=== PATIENT | male | born 1970 | race Caucasian/White ===

== ENCOUNTER → 2016-11-24 | Outpatient (REF) | payer OTHER ==
[2016-11-24 11:50] LABS: BASO % 0.5 % (0.0-1.0); LARGE UNSTAINED CELL # 0.1 K/mm3 (0.0-0.4); LARGE UNSTAINED CELL % 2.1 % (0.0-4.0); LYMPH # 2.3 K/mm3 (1.5-4.5); LYMPH % 46.4 % (24.0-44.0); MEAN CORPUSCULAR HEMOGLOBIN 32.2 pg (27.0-33.0); MEAN CORPUSCULAR HGB CONC 34.9 g/dl (32.0-36.5); MEAN CORPUSCULAR VOLUME 92.2 fl (80.0-96.0); MONO # 0.3 K/mm3 (0.0-0.8); MONO % 6.7 % (0.0-5.0); NEUTROPHILS # 2.2 K/mm3 (1.8-7.7); NEUTROPHILS % 43.3 % (36.0-66.0); PLATELET COUNT, AUTOMATED 187 k/mm3 (150-450); RED CELL DISTRIBUTION WIDTH 12.6 % (11.5-14.5)
[2016-11-24 12:08] LABS: FOLATE > 24.0 NG/ML; VITAMIN B12 LEVEL 489 PG/ML
[2016-11-24 12:15] LABS: ALBUMIN/GLOBULIN RATIO 1.18 (1.00-1.93); ALKALINE PHOSPHATASE 68 U/L (45-117); ALT/SGPT 60 U/L (12-78); ANION GAP 6 MEQ/L (8-16); AST/SGOT 25 U/L (15-37); BILIRUBIN,TOTAL 0.4 MG/DL (0.2-1.0); BLOOD UREA NITROGEN 17 MG/DL (7-18); CALCIUM LEVEL 8.7 MG/DL (8.5-10.1); CARBON DIOXIDE LEVEL 30 MEQ/L (21-32); CHLORIDE LEVEL 105 MEQ/L (98-107); CHOLESTEROL LEVEL 263 MG/DL (<200); CREATININE FOR GFR 1.08 MG/DL (0.70-1.30); GLOMERULAR FILTRATION RATE > 60.0 (>60); GLUCOSE, FASTING 109 MG/DL (70-105); POTASSIUM SERUM 4.5 MEQ/L (3.5-5.1); SODIUM LEVEL 141 MEQ/L (136-145); TOTAL PROTEIN 7.4 GM/DL (6.4-8.2); TRIGLYCERIDES LEVEL 505 MG/DL (<150)
== END ==
LOC: M SFHCLERA 09:15
PROVIDERS: ATTEND Family Medicine
DX: R53.83 Other fatigue (principal); Z13.220 Encounter for screening for lipoid disorders; R19.7 Diarrhea, unspecified

== ENCOUNTER → 2017-01-23 | Outpatient (CLI) | payer BC, OTHER ==
--- NOTE | 2017-01-27 08:33 | SLEEPCENT ---
DATE OF PROCEDURE: 01/23/2017 ORDERED BY: Kriss Fish INTERPRETATION: Nocturnal polysomnography was performed due to concern for the obstructive sleep apnea syndrome in this patient with a history of excessive somnolence, morning headaches and nonrestorative sleep. 7 hours and 20 minutes of data were reviewed. There were 295 minutes of sleep identified. Sleep latency was mildly prolonged at 33 minutes. REM latency likewise at 129 minutes. Sleep architecture was fair with two REM periods appreciated with a period of wake between 2:15 and 3 a.m. resulting in reduced sleep efficiency of 67%. REM time was fairly well preserved. The patient's EKG showed a sinus rhythm with an average heart rate of 60 beats per minute. EEG showed normal wave forms for awake and sleep. There were only 15 respiratory events identified of 10 seconds in duration or greater for an apnea-hypopnea index of 3.1. Significant snoring was appreciated and respiratory related arousals occurred 3.7 times per hour. There were a few limb movements. Limb movement arousal index was within normal range at 3.1. IMPRESSION: Normal nocturnal polysomnography with snoring.
== END ==
LOC: M SLEEP 20:00
PROVIDERS: ATTEND Nurse Practitioner Adult Health
DX: G47.30 Sleep apnea, unspecified (principal)

== ENCOUNTER → 2017-01-27 | Outpatient (CLI) | payer BC, OTHER ==
[2017-01-30 00:10] LABS: H PYLORI SERUM QUANT IgG ABY >8.0 U/mL (0.0-0.8)
== END ==
LOC: M SMT 11:37
PROVIDERS: ATTEND Allergy & Immunology Allergy
DX: K52.9 Noninfective gastroenteritis and colitis, unspecified (principal)

== ENCOUNTER → 2017-02-03 | Outpatient (REF) | payer OTHER, BC | LOC: M LAB REF 17:44 | PROVIDERS: ATTEND Allergy & Immunology Allergy | DX: B96.81 Helicobacter pylori [H. pylori] as the cause of diseases classified elsewhere (principal); L50.9 Urticaria, unspecified ==

== ENCOUNTER → 2017-03-29 | Outpatient (CLI) | payer BC, OTHER ==
--- NOTE | 2017-03-29 11:35 | REP ---
Clinical: Generalized abdominal pain. Technique: Supine views of the abdomen and pelvis. Findings: Supine views of the abdomen and pelvis demonstrate nonspecific bowel gas pattern without obstruction or perforation. No organomegaly. No abnormal calcifications. Skeletal structures normal for age. Impression: Nonspecific bowel gas pattern. Signed by Tod Chiang MD 03/29/2017 11:27 A
== END ==
LOC: M LRY 10:53
PROVIDERS: ATTEND Physician Assistant
DX: R10.84 Generalized abdominal pain (principal); K59.00 Constipation, unspecified

== ENCOUNTER → 2017-08-23 | Outpatient (REF) | payer OTHER ==
[2017-08-23 12:28] LABS: HEMOGLOBIN 16.8 g/dl (14.0-18.0); MEAN CORPUSCULAR HGB CONC 34.3 g/dl (32.0-36.5); MEAN CORPUSCULAR VOLUME 90.4 fl (80.0-96.0); PLATELET COUNT, AUTOMATED 211 10^3/uL (150-450); RED BLOOD COUNT 5.42 10^6/uL (4.30-6.10); RED CELL DISTRIBUTION WIDTH 12.5 % (11.5-14.5); WHITE BLOOD COUNT 6.3 10^3/uL (4.0-10.0)
[2017-08-23 13:10] LABS: ESTIMATED AVERAGE GLUCOSE 131 MG/DL (60-110); HEMOGLOBIN A1c 6.2 %
[2017-08-23 13:44] LABS: ALBUMIN/GLOBULIN RATIO 1.18 (1.00-1.93); ALKALINE PHOSPHATASE 57 U/L (45-117); ALT/SGPT 80 U/L (12-78); ANION GAP 7 MEQ/L (8-16); AST/SGOT 29 U/L (7-37); BILIRUBIN,TOTAL 0.4 MG/DL (0.2-1.0); BLOOD UREA NITROGEN 16 MG/DL (7-18); CALCIUM LEVEL 8.9 MG/DL (8.5-10.1); CARBON DIOXIDE LEVEL 30 MEQ/L (21-32); CHLORIDE LEVEL 105 MEQ/L (98-107); CHOLESTEROL LEVEL 141 MG/DL (<200); CREATININE FOR GFR 1.09 MG/DL (0.70-1.30); GLOMERULAR FILTRATION RATE > 60.0 (>60); GLUCOSE, FASTING 121 MG/DL (70-100); HDL CHOLESTEROL 38 MG/DL (>40); LDL CHOLESTEROL 59.6 MG/DL (<100); NON-HDL-C 103 MG/DL; POTASSIUM SERUM 4.4 MEQ/L (3.5-5.1); SODIUM LEVEL 142 MEQ/L (136-145); TOTAL PROTEIN 7.4 GM/DL (6.4-8.2); TRIGLYCERIDES LEVEL 217 MG/DL (<150)
== END ==
LOC: M SFHCLERA 08:19
DX: E78.5 Hyperlipidemia, unspecified (principal); E66.9 Obesity, unspecified

== ENCOUNTER → 2018-08-14 | Outpatient (REF) | payer OTHER ==
[2018-08-14 12:14] LABS: HEMOGLOBIN A1c 6.3 %
[2018-08-14 12:19] LABS: ALBUMIN 4.1 GM/DL (3.2-5.2); ALT/SGPT 46 U/L (12-78); BILIRUBIN,TOTAL 0.4 MG/DL (0.2-1.0); BLOOD UREA NITROGEN 15 MG/DL (7-18); CALCIUM LEVEL 9.1 MG/DL (8.5-10.1); CARBON DIOXIDE LEVEL 31 MEQ/L (21-32); CHLORIDE LEVEL 105 MEQ/L (98-107); CHOLESTEROL LEVEL 145 MG/DL (<200); CHOLESTEROL RISK RATIO 4.142 (<5); CREATININE FOR GFR 1.06 MG/DL (0.70-1.30); GLOMERULAR FILTRATION RATE > 60.0 (>60); GLUCOSE, FASTING 114 MG/DL (70-100); HDL CHOLESTEROL 35 MG/DL (>40); LDL CHOLESTEROL 72 MG/DL (<100); NON-HDL-C 110 MG/DL; POTASSIUM SERUM 4.5 MEQ/L (3.5-5.1); SODIUM LEVEL 141 MEQ/L (136-145); TOTAL PROTEIN 7.2 GM/DL (6.4-8.2); TRIGLYCERIDES LEVEL 190 MG/DL (<150)
== END ==
LOC: M SFHCLERA 10:07
PROVIDERS: ATTEND Family Medicine
DX: E78.5 Hyperlipidemia, unspecified (principal); R73.02 Impaired glucose tolerance (oral)

== ENCOUNTER → 2019-02-12 | Outpatient (REF) | payer OTHER ==
[2019-02-12 12:19] LABS: HEMOGLOBIN A1c 6.5 %
== END ==
LOC: M SFHCLERA 08:09
PROVIDERS: ATTEND Family Medicine
DX: R73.02 Impaired glucose tolerance (oral) (principal)

== ENCOUNTER → 2020-01-17 | Outpatient (CLI) | payer BC, OTHER | LOC: M LABSMTC 09:56 | PROVIDERS: ATTEND Family Medicine | DX: Z01.818 Encounter for other preprocedural examination (principal); Z11.59 Encounter for screening for other viral diseases | CPT/HCPCS: C9803; U0003 ==

== ENCOUNTER → 2021-01-30 | Outpatient (CLI) | payer BC, OTHER ==
--- NOTE | 2021-02-02 19:44 | SLEEPCENT ---
DATE: 01/30/2021 NOCTURNAL POLYSOMNOGRAPHY ORDERED BY: CUCA Bonilla Nocturnal polysomnography was performed for evaluation of sleep physiology in this patient with a history of excessive somnolence and nonrestorative sleep. Seven hours and 55 minutes of data were reviewed. There were 394 minutes of sleep identified. Sleep latency was normal at 17.5 minutes. REM latency was normal at 70 minutes. Sleep architecture was well preserved with four REM cycles. Overall sleep efficiency was 84.5%. The electrocardiogram showed a sinus rhythm with occasional PVCs. Average heart rate 60 beats per minute. EEG showed normal waveforms for wake and sleep. There were 91 respiratory events identified of 10 seconds in duration or greater for an apnea-hypopnea index of 13.9. The events were primarily obstructive, not exclusive to sleep stage nor body posture. Arousals from respiratory events occurred 2.3 times per hour, and oxygen desaturations were seen into the 80s. There was some minor limb activity. Limb movement arousal index was few. IMPRESSIONS: 1. Obstructive sleep apnea syndrome (G47.33). 2. Apnea-hypopnea index 13.9. RECOMMENDATION: The patient should be encouraged to return to [facility]. In the interim, alcohol and sedative avoidance should be practiced and caution exercised during the operation of motor vehicles. cc: SHAN ZHENG MD
== END ==
LOC: M SLEEP 20:00
PROVIDERS: ATTEND Nurse Practitioner Family
DX: G47.33 Obstructive sleep apnea (adult) (pediatric) (principal)

== ENCOUNTER → 2021-02-26 | Outpatient (CLI) | payer OTHER, BC ==
[2021-02-26 11:40] LABS: HEMOGLOBIN A1c 6.5 %
[2021-02-26 11:47] LABS: BLOOD UREA NITROGEN 16 MG/DL (7-18); CALCIUM LEVEL 8.7 MG/DL (8.5-10.1); CARBON DIOXIDE LEVEL 29 MEQ/L (21-32); CHLORIDE LEVEL 106 MEQ/L (98-107); CHOLESTEROL LEVEL 176 MG/DL (<200); CHOLESTEROL RISK RATIO 5.333 (<5); CREATININE FOR GFR 1.02 MG/DL (0.70-1.30); GLOMERULAR FILTRATION RATE > 60.0 (>60); GLUCOSE, FASTING 133 MG/DL (70-100); HDL CHOLESTEROL 33 MG/DL (>40); NON-HDL-C 143 MG/DL; POTASSIUM SERUM 4.8 MEQ/L (3.5-5.1); SODIUM LEVEL 140 MEQ/L (136-145); TRIGLYCERIDES LEVEL 433 MG/DL (<150)
== END ==
LOC: M WUC 08:21
PROVIDERS: ATTEND Family Medicine
DX: R73.01 Impaired fasting glucose (principal); E78.5 Hyperlipidemia, unspecified

== ENCOUNTER → 2021-03-27 | Outpatient (CLI) | payer BC, OTHER ==
--- NOTE | 2021-03-30 16:26 | SLEEPCENT ---
DATE: 03/27/2021 CPAP TITRATION ORDERED BY: CUCA Bonilla Nocturnal polysomnography was performed for the titration of pressure therapy in this patient with obstructive sleep apnea syndrome, apnea-hypopnea index of 13.9. For testing the patient was fit with a ResMed F20 full face mask of medium size, 4 cm of water pressure were applied to the circuit, and the lights were extinguished. Seven hours and 38 minutes of data were reviewed. There were 408.5 minutes of sleep identified. Sleep latency was prolonged at 17 minutes. REM latency was normal at 67 minutes. Sleep architecture improved with pressure therapy. There were four REM cycles noted. Overall sleep efficiency was 91%. The electrocardiogram showed a sinus rhythm with PVCs. Average heart rate of 68 beats per minute. EEG showed normal waveforms for wake and sleep. Respiratory events were fully palliated with CPAP at a pressure of 10 and remaining measures of sleep physiology were normal. IMPRESSION: Obstructive sleep apnea syndrome (G47.33). RECOMMENDATION: Nightly use of pressure therapy 10 cm of water. cc: Dr. Quispe
== END ==
LOC: M SLEEP 20:00
PROVIDERS: ATTEND Nurse Practitioner Family
DX: G47.33 Obstructive sleep apnea (adult) (pediatric) (principal)

== ENCOUNTER → 2021-08-19 | Outpatient (REF) | payer OTHER | LOC: M SFHCLERA 16:01 | PROVIDERS: ATTEND Family Medicine | DX: R05.9 Cough, unspecified (principal) ==

== ENCOUNTER 2022-01-06 14:06 | Emergency (ER) | payer BC, OTHER ==
[~2022-01-06] VITALS: Ht 185.4 cm; Wt 132.5 kg
[2022-01-06] MEDS ORDERED: SIMV40TA20 (14:15)
[2022-01-06] MEDS ORDERED: methocarbamoL 750 MG TAB PO ONE (16:05)
[2022-01-06] MEDS ORDERED: LIDOCAINE 5% (LIDODERM) PATCH TD ONE (16:05)
[2022-01-06] MEDS ORDERED: KETOROLAC 60MG 2ML VIAL IM ONE (16:05)
[2022-01-06 16:58] VITALS: BP 155/75
[2022-01-06] MEDS ORDERED: LIDO5DIS41 TD (16:58)
[2022-01-06] MEDS ORDERED: METH-1165 PO (16:58)
[2022-01-06] MEDS ORDERED: KETO10TAB PO (16:58)
[2022-01-06] MEDS ORDERED: **NOTE PATIENT COMMENT** MISC XX SCH (21:00)
== END 2022-01-06 17:07 | disposition home or self-care (01) ==
LOC: M ED 14:06
DX: S39.012A Strain of muscle, fascia and tendon of lower back, initial encounter (principal); X58.XXXA Exposure to other specified factors, initial encounter; Y92.89 Other specified places as the place of occurrence of the external cause; E78.5 Hyperlipidemia, unspecified; Z79.899 Other long term (current) drug therapy
CPT/HCPCS: 96372; 99283; J1885

== ENCOUNTER → 2022-03-02 | Outpatient (CLI) | payer BC, OTHER ==
[~2022-03-02] MED LIST: KETO10TAB PO; LIDO5DIS41 TD; METH-1165 PO; SIMV40TA20
[2022-03-02 10:05] LABS: BASO # 0.1 10^3/uL (0.0-0.2); EOS # 0.1 10^3/uL (0.0-0.5); EOS % 1.2 % (0.0-3.0); HEMATOCRIT 46.3 % (42.0-52.0); HEMOGLOBIN 15.2 g/dl (13.5-17.5); LYMPH # 2.6 10^3/uL (1.5-5.0); LYMPH % 49.9 % (24.0-44.0); MEAN CORPUSCULAR HEMOGLOBIN 30.3 pg (27.0-33.0); MEAN CORPUSCULAR HGB CONC 32.8 g/dl (32.0-36.5); MEAN CORPUSCULAR VOLUME 92.2 fl (80.0-96.0); MONO # 0.5 10^3/uL (0.0-0.8); MONO % 8.7 % (2.0-8.0); PLATELET COUNT, AUTOMATED 211 10^3/uL (150-450); RED BLOOD COUNT 5.02 10^6/uL (4.30-6.10); WHITE BLOOD COUNT 5.2 10^3/uL (4.0-10.0)
[2022-03-02 10:25] LABS: HEMOGLOBIN A1c 6.9 %
[2022-03-02 10:57] LABS: ALBUMIN 3.7 GM/DL (3.2-5.2); ALT/SGPT 75 U/L (12-78); BILIRUBIN,TOTAL 0.5 MG/DL (0.2-1.0); BLOOD UREA NITROGEN 16 MG/DL (7-18); CALCIUM LEVEL 9.2 MG/DL (8.5-10.1); CARBON DIOXIDE LEVEL 28 MEQ/L (21-32); CHLORIDE LEVEL 106 MEQ/L (98-107); CREATININE FOR GFR 1.05 MG/DL (0.70-1.30); GLOMERULAR FILTRATION RATE > 60.0 (>60); GLUCOSE, FASTING 162 MG/DL (70-100); SODIUM LEVEL 137 MEQ/L (136-145); TOTAL PROTEIN 6.9 GM/DL (6.4-8.2)
[2022-03-02 11:35] LABS: TOTAL 25(OH) VITAMIN D 28.8 NG/ML (30.0-100.0); VITAMIN B12 LEVEL 353 PG/ML (247-911)
[2022-03-02 11:37] LABS: FOLATE 14.9 NG/ML (>5.4)
== END ==
LOC: M WUC 08:23
PROVIDERS: ATTEND Family Medicine
DX: R53.83 Other fatigue (principal); E66.9 Obesity, unspecified

== ENCOUNTER → 2023-04-20 | Outpatient (CLI) | payer BC, OTHER ==
[2023-04-20 10:45] LABS: BLOOD UREA NITROGEN 21 MG/DL (9-23); CALCIUM LEVEL 9.3 MG/DL (8.5-10.1); CARBON DIOXIDE LEVEL 30 MMOL/L (20-31); CHLORIDE LEVEL 105 MMOL/L (98-107); CREATININE FOR GFR 0.96 MG/DL (0.70-1.30); GLOMERULAR FILTRATION RATE > 60.0 (>56); GLUCOSE, FASTING 173 MG/DL (60-100); MAGNESIUM LEVEL 1.9 MG/DL (1.8-2.4); POTASSIUM SERUM 4.7 MMOL/L (3.5-5.1); SODIUM LEVEL 139 MMOL/L (136-145)
[2023-04-21 12:09] LABS: TESTOSTERONE FREE (DIRECT) 10.7 pg/mL (7.2-24.0)
== END ==
LOC: M WUC 08:29
PROVIDERS: ATTEND Family Medicine
DX: E87.5 Hyperkalemia (principal); R53.83 Other fatigue

== ENCOUNTER → 2024-06-08 | Outpatient (CLI) | payer BC, OTHER ==
[2024-06-08 10:13] LABS: HEMATOCRIT 46.8 % (42.0-52.0); HEMOGLOBIN 16.2 g/dl (13.5-17.5); MEAN CORPUSCULAR HEMOGLOBIN 31.8 pg (27.0-33.0); MEAN CORPUSCULAR HGB CONC 34.6 g/dl (32.0-36.5); MEAN CORPUSCULAR VOLUME 91.8 fl (80.0-96.0); PLATELET COUNT, AUTOMATED 205 10^3/uL (150-450); WHITE BLOOD COUNT 6.5 10^3/uL (4.0-10.0)
== END ==
LOC: M WUC 08:17
PROVIDERS: ATTEND Physician Assistant
DX: E29.1 Testicular hypofunction (principal)

== ENCOUNTER → 2024-06-08 | Outpatient (CLI) | payer BC, OTHER ==
[2024-06-08 10:39] LABS: BLOOD UREA NITROGEN 16 MG/DL (9-23); CALCIUM LEVEL 9.4 MG/DL (8.5-10.1); CARBON DIOXIDE LEVEL 31 MMOL/L (20-31); CHLORIDE LEVEL 103 MMOL/L (98-107); CREATININE FOR GFR 0.97 MG/DL (0.70-1.30); GLOMERULAR FILTRATION RATE > 60.0 (>56); GLUCOSE, FASTING 120 MG/DL (60-100); POTASSIUM SERUM 4.4 MMOL/L (3.5-5.1); SODIUM LEVEL 140 MMOL/L (136-145)
== END ==
LOC: M WUC 08:18
PROVIDERS: ATTEND Physician Assistant
DX: E11.9 Type 2 diabetes mellitus without complications (principal)

== ENCOUNTER → 2024-09-04 | Outpatient (CLI) | payer BC, OTHER ==
[2024-09-04 10:49] LABS: CORTISOL BASELINE 26.7 UG/DL (4.3-22.4)
[2024-09-04 10:52] LABS: FREE T4 1.36 NG/DL (0.89-1.76)
[2024-09-04 10:54] LABS: THYROID STIMULATING HORMONE 3.059 uIU/ML (0.55-4.78)
[2024-09-04 10:55] LABS: TOTAL 25(OH) VITAMIN D 28.4 NG/ML (20.0-100.0)
== END ==
LOC: M WUC 08:09
PROVIDERS: ATTEND Internal Medicine Critical Care Medicine
DX: G47.33 Obstructive sleep apnea (adult) (pediatric) (principal)

== ENCOUNTER 2024-10-04 12:33 | Day surgery (SDC) | payer BC ==
[~2024-10-04] VITALS: Ht 185.4 cm; Wt 129.3 kg
[~2024-10-04 12:33] MED LIST changes: +ERGO500029 PO; +LISI5TAB11 PO; +METF500T13 PO; +OMEG10002 PO; +SIMV40TA20 PO; +THERTAB52 PO; +[UNRECOGNIZED DRUG - REMARK] PO
[2024-10-04] MEDS ORDERED: propofoL 200 MG/20 ML VIAL As Ordered ONE (13:41)
[2024-10-04 14:05] VITALS: TEMP 98.7
[2024-10-04 14:21] VITALS: BP 147/72; O2SAT 97
== END 2024-10-04 14:40 | disposition home or self-care (01) ==
LOC: M OPP 12:33
PROVIDERS: ATTEND Surgery
DX: Z12.11 Encounter for screening for malignant neoplasm of colon (principal); D12.3 Benign neoplasm of transverse colon; G47.30 Sleep apnea, unspecified; Z79.84 Long term (current) use of oral hypoglycemic drugs; Z79.899 Other long term (current) drug therapy

== ENCOUNTER → 2024-11-12 | Outpatient (CLI) | payer BC ==
[2024-11-12 13:06] LABS: BASO # 0.1 10^3/uL (0.0-0.2); BASO % 0.7 % (0.0-1.0); EOS # 0.1 10^3/uL (0.0-0.5); EOS % 1.5 % (0.0-3.0); LYMPH # 3.3 10^3/uL (1.5-5.0); LYMPH % 44.5 % (24.0-44.0); MEAN CORPUSCULAR HEMOGLOBIN 31.7 pg (27.0-33.0); MEAN CORPUSCULAR HGB CONC 33.3 g/dl (32.0-36.5); MEAN CORPUSCULAR VOLUME 95.1 fl (80.0-96.0); MONO # 0.7 10^3/uL (0.0-0.8); MONO % 9.5 % (2.0-8.0); NEUTROPHILS # 3.2 10^3/uL (1.5-8.5); NEUTROPHILS % 43.4 % (36.0-66.0); PLATELET COUNT, AUTOMATED 235 10^3/uL (150-450); RED BLOOD COUNT 5.36 10^6/uL (4.30-6.10); WHITE BLOOD COUNT 7.4 10^3/uL (4.0-10.0)
[2024-11-12 13:09] LABS: ALBUMIN 3.9 G/DL (3.2-5.2); BILIRUBIN,TOTAL 0.2 MG/DL (0.3-1.2); CALCIUM LEVEL 9.4 MG/DL (8.5-10.1); CREATININE FOR GFR 1.03 MG/DL (0.70-1.30); GLOMERULAR FILTRATION RATE 87.4 (>56); POTASSIUM SERUM 4.1 MMOL/L (3.5-5.1)
[2024-11-12 13:10] LABS: THYROID STIMULATING HORMONE 2.771 uIU/ML (0.55-4.78)
[2024-11-12 13:11] LABS: TOTAL 25(OH) VITAMIN D 33.6 NG/ML (20.0-100.0)
[2024-11-12 13:38] LABS: HEMOGLOBIN A1c 6.6 % (4.0-6.0)
== END ==
LOC: M WUC 08:12
PROVIDERS: ATTEND Physician Assistant
DX: E11.9 Type 2 diabetes mellitus without complications (principal)

== ENCOUNTER → 2025-02-07 | Outpatient (CLI) | payer BC ==
[~2025-02-07] MED LIST changes: +LIDO1ADH93 TD; -LIDO5DIS41 TD
== END ==
LOC: M WUC 08:10
PROVIDERS: ATTEND Physician Assistant
DX: E29.1 Testicular hypofunction (principal)